=== PATIENT | male | born 1990 | race African-American/Black ===

== ENCOUNTER 2018-08-02 16:59 | Emergency (ER) | payer OTHER ==
[~2018-08-02] VITALS: Ht 165.1 cm; Wt 66.7 kg
[2018-08-02 19:32] VITALS: BP 121/68; TEMP 98.1
== END 2018-08-02 19:35 | disposition home or self-care (01) ==
LOC: ED 16:59
DX: S02.82XA Fracture of other specified skull and facial bones, left side, initial encounter for closed fracture (principal); S02.2XXA Fracture of nasal bones, initial encounter for closed fracture; W22.8XXA Striking against or struck by other objects, initial encounter
CPT/HCPCS: 99283